=== PATIENT | male | born 1975 | race Caucasian/White ===

== ENCOUNTER 2018-05-10 14:29 | Emergency (ER) | payer OTHER ==
[2018-05-10 14:40] VITALS: BP 131/89; PULSE 98; TEMP 99.3; BMI 29.7
[2018-05-10] MEDS ORDERED: DIPHTH,PERTUSS(ACELL),TET 0.5 ML DISP.SYRIN IM ONE (15:46)
[2018-05-10] MEDS ORDERED: BACITRACIN 15 GM TUBE TOPICAL OINTMENT ONE (15:47)
[2018-05-10] MEDS ORDERED: IBUPROFEN 600 MG TABLET (FP) PO ONE ×2 (15:55→15:58)
[2018-05-10] MEDS ORDERED: BACITRACIN 15 GM TUBE TOPICAL OINTMENT TP ONE (15:56)
--- NOTE | 2018-05-10 15:59 | PDOC ---
History of Present Illness - General Chief Complaint: Injury Stated Complaint: INJURY TO HEAD Time Seen by Provider: 05/10/18 15:29 History Source: Patient Exam Limitations: No Limitations - History of Present Illness Initial Comments: 05/10/18 15:54 States stood up and banged his head on edge of shelf causing a laceration to the right occiput. No LOC, cleaned at work but came for evaluation. Past History - Past Medical History Allergies/Adverse Reactions: Allergies Allergy/AdvReac Type Severity Reaction Status Date / Time No Known Allergies Allergy Verified 05/10/18 14:40 Home Medications: Ambulatory Orders NK [No Known Home Medication] 05/10/18 - Suicide/Smoking/Psychosocial Hx Smoking History: Never smoked Have you smoked in the past 12 months: No Information on smoking cessation initiated: No Hx Alcohol Use: No Drug/Substance Use Hx: No Review of Systems - Review of Systems Able to Perform ROS?: Yes Is the patient limited Peruvian proficient: Yes Constitutional: Yes: Symptoms Reported, See HPI. No: Fever, Malaise HEENTM: Yes: See HPI, Other (mild headache). No: Symptoms Reported Neurological: Yes: Symptoms reported, See HPI, Headache (at site of impact) All Other Systems: Reviewed and Negative *Physical Exam - Vital Signs Last Vital Signs Temp Pulse Resp BP Pulse Ox 99.3 F 98 H 16 131/89 100 05/10/18 14:38 05/10/18 14:38 05/10/18 14:38 05/10/18 14:38 05/10/18 14:38 - Physical Exam General Appearance: Yes: Nourished, Appropriately Dressed, Mild Distress HEENT: positive: EOMI, LINDA, Normal ENT Inspection, TMs Normal (no hemotympanum , no drainage from nose or ears), Pharynx Normal, Other (2 cm scalp laceration to right occiput, no crepitus or step-offs, no active bleeding, no hematoma. No evidence of skull fracture.) Neck: positive: Supple. 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, Fully Oriented, Alert, Normal Mood/ Affect, Normal Response, Motor Strength 5/5 Procedures - Laceration/Wound Repair Right Head Wound Length: to 2.5 cm Wound Explored: clean Wound's Depth, Shape: superficial, linear Irrigated w/ Saline: Yes Betadine Prep: Yes Anesthesia: 1% Lidocaine Wound Repaired With: [place] Number of Sutures: 2 ED Treatment Course - Medications Given in the ED: ED Medications Discontinued Medications Generic Name Dose Route Start Last Admin Trade Name Leanna PRN Reason Stop Dose Admin Diphtheria/Tetanus/Acell Pertussis 0.5 ml 05/10/18 15:46 05/10/18 15:46 Boostrix - IM 05/10/18 15:47 0.5 ml NOW ONE Administration Progress Note - Progress Note Progress Note: Superficial head injury with scalp laceration, repaired with 2 paul. Patient tolerated well. Tetanus/diphtheria/pertussis booster updated today *DC/Admit/Observation/Transfer Diagnosis at time of Disposition: Scalp laceration Qualifiers: Encounter type: initial encounter Qualified Code(s): S01.01XA - Laceration without foreign body of scalp, initial encounter - Discharge Dispostion Disposition: HOME Condition at time of disposition: Stable Decision to Admit order: No - Referrals Referrals: ON STAFF,NOT [Primary Care Provider] - - Patient Instructions Printed Discharge Instructions: DI for Laceration Repair of the Scalp Additional Instructions: Rest, no exercise or gym until paul are removed May use ice packs tonight as needed for swelling and pain Put a towel over pillow/old pillowcase to avoid damage from bacitracin and bleeding to linens until paul removed Use antibiotic cream/ointment once in the morning once at night until paul are removed May use Tylenol or Motrin for pain relief Return to emergency department for worsening pain, swelling, bleeding, or evidence of serious head injury Your tetanus/diphtheria/pertussis booster was updated today Staple removal in 5-7 days - Post Discharge Activity Forms/Work/School Notes: Back to Work
== END 2018-05-10 16:03 | disposition home or self-care (01) ==
LOC: JERFT 14:29
PROC: 0HQ0XZZ Repair Scalp Skin, External Approach (ICD-10-PCS; principal; 2018-05-10)
PROC: 3E0234Z Introduction of Serum, Toxoid and Vaccine into Muscle, Percutaneous Approach (ICD-10-PCS; 2018-05-10)
DX: S01.01XA Laceration without foreign body of scalp, initial encounter (principal); X58.XXXA Exposure to other specified factors, initial encounter; Y93.89 Activity, other specified; Y92.9 Unspecified place or not applicable
CPT/HCPCS: 90715; 99281-25

== ENCOUNTER 2018-05-17 13:51 | Emergency (ER) | payer OTHER ==
[2018-05-17 13:56] VITALS: BP 120/80; PULSE 60; TEMP 98; BMI 29.7
[2018-05-17] MEDS ORDERED: BACITRACIN 15 GM TUBE TOPICAL OINTMENT ONE (14:01)
--- NOTE | 2018-05-17 14:06 | PDOC ---
Suture Removal/Wound Check HPI - History of Present Illness Chief Complaint: Suture/Staple Removal (other) Stated Complaint: Suture/Staple Removal(Here) Time Seen by Provider: 05/17/18 14:02 History Source: Yes: Patient Exam Limitations: Yes: No Limitations Treated at: [facility] ED - Previous ED Treatment Type of procedure performed on last visit: Yes: Laceration Repair Tetanus Immunization: Yes: Up to Date Past History - Travel Traveled outside of the country in the last 30 days: No Close contact w/someone who was outside of country & ill: No - Past Medical History Allergies/Adverse Reactions: Allergies Allergy/AdvReac Type Severity Reaction Status Date / Time No Known Allergies Allergy Verified 05/17/18 13:56 Home Medications: Ambulatory Orders NK [No Known Home Medication] 05/10/18 - Suicide/Smoking/Psychosocial Hx Smoking History: Never smoked Have you smoked in the past 12 months: No Information on smoking cessation initiated: No Hx Alcohol Use: No Drug/Substance Use Hx: No Suture Removal/Wound Check PE - Physical Exam Laceration/Wound Check Symptoms: reports: None Current Severity Level: None Maximum Severity Level: None Pain Localization: None Location of Laceration/Wound: right: Head (2 paul intact and well aprox suture line ) *Review of Systems - Review of Systems Able to Perform ROS?: Yes Constitutional: Yes: Symptoms Reported, See HPI HEENTM: Yes: See HPI. No: Symptoms Reported Respiratory: No: Symptoms reported Integumentary: Yes: Symptoms Reported All Other Systems: Reviewed and Negative *Physical Exam - Vital Signs Last Vital Signs Temp Pulse Resp BP Pulse Ox 98 F 60 16 120/80 100 05/17/18 13:54 05/17/18 13:54 05/17/18 13:54 05/17/18 13:54 05/17/18 13:54 - Physical Exam General Appearance: Yes: Nourished, Appropriately Dressed. 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
== END 2018-05-17 14:06 | disposition home or self-care (01) ==
LOC: JERFT 13:51
DX: Z48.02 Encounter for removal of sutures (principal)
CPT/HCPCS: 99281-25

== ENCOUNTER 2024-01-07 16:11 | Emergency (ER) | payer OTHER ==
[2024-01-07 16:23] VITALS: BP 133/83; PULSE 115; RESP 18; TEMP 99.1; BMI 30.7
[2024-01-07] MEDS ORDERED: DIPHTH,PERTUSS(ACELL),TET 0.5 ML DISP.SYRIN IM ONE (17:12)
[2024-01-07] MEDS: DIPHTH,PERTUSS(ACELL),TET 0.5 ML DISP.SYRIN IM ONE (17:15)
== END 2024-01-07 17:30 | disposition home or self-care (01) ==
LOC: JER 16:11
PROC: 0HQGXZZ Repair Left Hand Skin, External Approach (ICD-10-PCS; principal; 2024-01-07)
PROC: 3E0234Z Introduction of Serum, Toxoid and Vaccine into Muscle, Percutaneous Approach (ICD-10-PCS; 2024-01-07)
DX: S61.217A Laceration without foreign body of left little finger without damage to nail, initial encounter (principal); W29.3XXA Contact with powered garden and outdoor hand tools and machinery, initial encounter; Y92.007 Garden or yard of unspecified non-institutional (private) residence as the place of occurrence of the external cause; Z23 Encounter for immunization
CPT/HCPCS: 90715; 93005; 93010; 99283-25

== ENCOUNTER 2024-01-16 19:31 | Emergency (ER) | payer OTHER ==
[2024-01-16 19:36] VITALS: BP 135/78; PULSE 86; RESP 17; TEMP 98; BMI 30.7
== END 2024-01-16 20:01 | disposition home or self-care (01) ==
LOC: JERFT 19:31
DX: Z48.02 Encounter for removal of sutures (principal)
CPT/HCPCS: 99281-25